=== PATIENT | male | born 1990 | race African-American/Black ===

== ENCOUNTER 2017-02-08 02:30 | Emergency (ER) | payer OTHER ==
--- NOTE | ~2017-02-08 | CR63 ---
[facility] A Service of [facility] & [facility] RADIOLOGY TEXT RESULTS PATIENT: ORA DWYER LOCATION: [facility] : 86 UNIT #: [id number] AGE: [address]: Leonel Chan MD SEX: M ORDER DR: [id number] [facility] [address] [place], [place] [address] [id number] MR#: [id number] Acc #: [id number] NAME: ORA DWYER : 1990 SEX: M STUDY DATE/TIME: 02/08/2017 UNIT: [facility] ROOM: STUDY DESCRIPTION: CR Chest 2 View Attending Physician: Leonel Chan M.D. Ordering Physician: Leonel Chan M.D. Primary Care Physician: Primary Care Physician No MEDICAL IMAGING REPORT This report is preliminary unless electronic signature is present EXAM Chest x-ray 02/08 at 03:12 INDICATIONS Cough, congestion for 2 weeks. Comparison 05/17/2016. FINDINGS PA and lateral examination of the chest upright shows a good expansion of the parenchyma with a normal distribution of the pulmonary vascularity. There is no indication of congestion, effusion, infiltrate, tumor, or nodular density. The pleural reflections and diaphragmatic contours are normal. The cardiac silhouette and mediastinal anatomy is within normal limits. IMPRESSION Normal chest. Dictated by... Ammon Owen Jr., M.D. THIS IS AN ELECTRONICALLY VERIFIED REPORT Ammon Owen Jr., M.D. at 02/08/2017 9:15 PM ZHANG/owen TD: 02/08/2017 10:35 JOB #: [id number] MEDICAL IMAGING REPORT Page 1 of 1 COPY
== END 2017-02-08 03:50 | disposition home or self-care (01) ==
LOC: CED 02:30
DX: R05 Cough (principal); J30.2 Other seasonal allergic rhinitis; F17.200 Nicotine dependence, unspecified, uncomplicated
CPT/HCPCS: 71020; 99283